=== PATIENT | male | born 1990 ===

== ENCOUNTER → 2018-01-24 | Outpatient (CLI) | payer OTHER ==
--- NOTE | 2018-01-25 11:10 | RADIOLOGY IMAGING REPORT ---
FACILITY: [facility] PATIENT NAME: MIKALA VILLALOBOS : [id number] MR: [id number] V: [id number] EXAM DATE: ORDERING PHYSICIAN: ALIREZA DUKE TECHNOLOGIST: Ariane Schulte PROCEDURE:BILATERAL DIAGNOSTIC DIGITAL MAMMOGRAM WITH CAD ASSISTED INTERPRETATION & 3D TOMOSYNTHESIS COMPARISON:Today's bilateral breast Ultrasound INDICATIONS:BILAT AREOLA PAIN, LT BREAST MASS W/ PAIN FINDINGS: Moderately heterogeneous fibroglandular tissue is seen throughout the breasts. There is no demonstration of malignant appearing mass, malignant appearing calcification or other secondary sign of malignancy in either breast. Today's bilateral breast Ultrasound revealed no evidence of mass, cystic or solid. DIAGNOSTIC CATEGORY 2--BENIGN FINDING. RECOMMENDATIONS: CLINICAL EVALUATION. IMPRESSION: BIRADS 2: Benign finding. Moderately dense fibroglandular tissue is seen throughout both breasts likely related to bilateral gynecomastia. Clinical follow up recommended. Dictated by: Jess Akhtar M.D. on 01/24/2018 at 17:17 Transcribed by: [email or web address] on 01/25/2018 at 8:35 Approved by: Jess Akhtar M.D. on 01/25/2018 at 11:09 [facility]
--- NOTE | 2018-01-25 11:10 | RADIOLOGY IMAGING REPORT ---
FACILITY: [facility] PATIENT NAME: MIKALA VILLALOBOS : [id number] MR: [id number] V: [id number] EXAM DATE: [id number] ORDERING PHYSICIAN: ALIREZA DUKE TECHNOLOGIST: Ronnell Del Castillo PROCEDURE:US BILATERAL BREAST COMPARISON:None. INDICATIONS:BILAT AREOLA PAIN, LT BREAST MASS 4-5 O'CLOCK W/ PAIN FINDINGS: Sonographic imaging was performed of both breasts revealing no sonographic abnormality, cystic or solid. Today's bilateral mammogram revealed no abnormality. Patient's symptoms are likely related to gynecomastia, however clinical follow up recommended. DIAGNOSTIC CATEGORY 2--BENIGN FINDING. RECOMMENDATIONS: CLINICAL EVALUATION. IMPRESSION: BIRADS: 2: Benign finding. Patient's symptoms are likely related to gynecomastia, however clinical follow up recommended. Dictated by: Jess Akhtar M.D. on 01/24/2018 at 17:17 Transcribed by: [email or web address] on 01/25/2018 at 9:53 Approved by: Jess Akhtar M.D. on 01/25/2018 at 11:09 [facility]
== END ==
LOC: MAMO 03:44
PROVIDERS: ATTEND Nurse Practitioner Family
DX: N64.4 Mastodynia (principal); N63.23 Unspecified lump in the left breast, lower outer quadrant
CPT/HCPCS: 36415; 76641; 77062; 77066; 82040; 82247; 82310; 82374; 82435; 82565; 82947; 83001; 83002; 84075; 84132; 84146; 84155; 84295; 84403; 84443; 84450; 84460; 84520

== ENCOUNTER → 2018-09-08 | Outpatient (CLI) | payer OTHER ==
[~2018-09-08] MED LIST: AMPH20CA15 PO; ATOM40CA7 PO; HYDR12.561 PO; LISI5TAB25 PO; TRAZ50TA34 PO
== END ==
LOC: LAB 10:33
PROVIDERS: ATTEND Nurse Practitioner Primary Care
DX: I10 Essential (primary) hypertension (principal)
CPT/HCPCS: 36415; 82040; 82247; 82310; 82374; 82435; 82565; 82947; 84075; 84132; 84155; 84295; 84450; 84460; 84520